=== PATIENT | male | born 1980 | race American Indian/Alaskan Native ===

== ENCOUNTER 2016-09-18 19:54 | Emergency (ER) | payer SELFPAY ==
[2016-09-18 20:41] LABS: Basophils % (Auto) 0.9 % (0.0-1.8); Eosinophils % (Auto) 4.2 % (0.0-4.3); Hematocrit 50.7 % (35.5-45.6); Hemoglobin 16.4 gm/dl (11.8-15.2); Mean Corpuscular HGB Conc 32 % (32-34); Mean Corpuscular Hemoglobin 28 pg (28-32); Mean Corpuscular Volume 86 fl (84-94); Platelet Count 291 K/mm3 (140-440); Red Blood Count 5.91 M/mm3 (3.65-5.03); Red Cell Distribution Width 15.9 % (13.2-15.2); White Blood Count 7.7 K/mm3 (4.5-11.0)
[2016-09-18 20:46] LABS: INR 0.93 (0.87-1.13)
[2016-09-18 20:47] LABS: Partial Thromboplastin Time 26.6 Sec. (24.2-36.6)
[2016-09-18 20:52] LABS: BUN/Creatinine Ratio 8.88; Blood Urea Nitrogen 8 mg/dL (9-20); Calcium 9.5 mg/dL (8.4-10.2); Carbon Dioxide 21 mmol/L (22-30); Glucose 89 mg/dL (75-100)
[2016-09-18 20:53] LABS: Anion Gap 19 mmol/L; Chloride 105.4 mmol/L (98-107); Potassium 4.3 mmol/L (3.6-5.0); Sodium 141 mmol/L (137-145)
[2016-09-19] MEDS ORDERED: DUONEB 0.5 MG-3 MG/3 ML SOLN IH ONE (01:51)
[2016-09-19] MEDS ORDERED: DELTASONE PO ONE (01:51)
--- NOTE | 2016-09-19 02:11 | Emergency Department Report ---
HPI - General Chief Complaint: Chest Pain Time Seen by Provider: 09/19/16 01:11 - HPI HPI: This is a 35-year-old Afro-[place] male presents the emergency department from home with complaint of some midsternal tightness, shortness of breath and cough but has been going on intermittently over the past 3 weeks and often occurs at night, waking him from sleep. At that point the patient will take some aspirin and use his albuterol inhaler and he will get enough relief or taken go to sleep. He denies any fever, nausea, vomiting, back pain, diaphoresis. The cough sounds productive to him and he is unable to bring anything up. He has a past nuchal history of some type of aortic tear in the past that caused him to have some surgical intervention. The patient is a tobacco smoker and says he uses about 3-4 cigarettes per day. No recent travel or sick contacts at home. He does not have a primary care doctor. ED Past Medical Hx - Past Medical History Previous Medical History?: No - Surgical History Past Surgical History?: Yes Additional Surgical History: AORTIC REPAIR - Social History Smoking Status: Current Every Day Smoker Substance Use Type: Alcohol, Cocaine - Medications Home Medications: Home Medications Medication Instructions Recorded Confirmed Last Taken Type ALBUTEROL Inhaler [ProAir HFA 2 puff IH QID PRN #1 inhalation 09/19/16 Unknown Rx Inhaler] Sulfamethoxazole/Trimethoprim 1 each PO BID #10 tablet 09/19/16 Unknown Rx [Bactrim DS TAB] predniSONE [Deltasone] 20 mg PO QDAY #4 tab 09/19/16 Unknown Rx ED Review of Systems ROS: Stated complaint: CHEST PAIN Other details as noted in HPI Comment: All other systems reviewed and negative Constitutional: denies: chills, fever Eyes: denies: eye pain, eye discharge, vision change ENT: denies: ear pain, throat pain Respiratory: cough, shortness of breath, wheezing Cardiovascular: chest pain. denies: palpitations Gastrointestinal: denies: abdominal pain, nausea, diarrhea Genitourinary: denies: urgency, dysuria Musculoskeletal: denies: back pain, joint swelling, arthralgia Skin: denies: rash, lesions Neurological: denies: headache, weakness, paresthesias Physical Exam - Physical Exam Vital Signs: Vital Signs 09/18/16 09/19/16 20:14 01:07 Temperature 98.2 F Pulse Rate 88 68 Respiratory 18 16 Rate Blood Pressure 142/100 Blood Pressure 126/77 [Left] O2 Sat by Pulse 100 98 Oximetry Physical Exam: GENERAL: The patient is well-developed well-nourished. HEENT: Normocephalic. Atraumatic. Extraocular motions are intact. Patient has moist mucous membranes. Pupils equal reactive to light bilaterally. NECK: Supple. Trachea is midline. CHEST/LUNGS: Mild expiratory wheezing heard throughout the chest. No cough heard during examination. No tachypnea or accessory muscle use. There is no respiratory distress noted. HEART/CARDIOVASCULAR: Regular. There is no tachycardia. There is no gallop rub or murmur. ABDOMEN: Abdomen is soft, nontender. Patient has normal bowel sounds. There is no abdominal distention. SKIN: Skin is warm and dry. There is a circular area to the right medial ankle that is about 4 cm in diameter that appears mostly consistent with a small ulcer or macerated skin. NEURO: The patient is awake, alert, and oriented. The patient is cooperative. The patient has no focal neurologic deficits. The patient has normal speech. MUSCULOSKELETAL: There is no tenderness or deformity. There is no limitation range of motion. There is no evidence of acute injury. ED Course Vital Signs 09/18/16 09/19/16 20:14 01:07 Temperature 98.2 F Pulse Rate 88 68 Respiratory 18 16 Rate Blood Pressure 142/100 Blood Pressure 126/77 [Left] O2 Sat by Pulse 100 98 Oximetry ED Medical Decision Making - Lab Data Result diagrams: 09/18/16 20:20 09/18/16 20:20 - EKG Data -: EKG Interpreted by Me EKG shows normal: sinus rhythm, axis (right axis deviation), intervals, QRS complexes, ST-T waves (T-wave inversions to the inferior leads) Rate: normal - EKG Data When compared to previous EKG there are: previous EKG unavailable Interpretation: other (sinus rhythm, right axis deviation, T-wave inversions to the inferior leads) - Radiology Data Radiology results: image reviewed interpreted by me: Chest x-ray did not show any acute process. Heart is normal shape and size. No effusions. No pneumothorax. No signs of pneumonia seen. - Medical Decision Making 35-year-old male presents with a complaint of a one month history of some chest tightness, wheezing and shortness of breath and cough that wakes him up from sleep and mostly occurs at night. On physical exam he does have a mild expiratory wheeze but no respiratory distress. He was given a dose of steroids and a DuoNeb and upon reevaluation he is feeling much better. Patient's labs are mostly unremarkable. He had negative troponins 3 and a negative d-dimer. No signs of infection. Chest x-ray does not show any pneumonia, pleural effusions or any acute process. Vital signs stable throughout his ED course including being afebrile. Patient appears safe for discharge home at this time. He was given an albuterol inhaler, steroids. Patient showed me a small wound to the medial right ankle that appears more like some macerated skin from using so much Neosporin. He will be placed on a small dose of Bactrim and we discussed wound care. He was given referrals for primary care and cardiology. He will return to the ER with any worsening of symptoms or any acute distress. - Differential Diagnosis Asthma, bronchitis, PE, [place], Pneumonia Critical Care Time: No Critical care attestation.: If time is entered above; I have spent that time in minutes in the direct care of this critically ill patient, excluding procedure time. ED Disposition Clinical Impression: Intermittent chest pain, Bronchospasm, Tobacco use, Bronchitis Ankle wound Qualifiers: Encounter type: initial encounter Laterality: right Qualified Code(s): S91.001A - Unspecified open wound, right ankle, initial encounter Disposition: DISCHARGED TO HOME OR SELFCARE Is pt being admited?: No Condition: Stable Instructions: Chest Pain (ED), Acute Bronchitis (ED), Bronchospasm (ED) Additional Instructions: Please follow-up with a primary care doctor in the next few days if possible. I will also give you a referral for a local office specialist, Dr. Lazaro, to follow up regarding her chest discomfort. Please try and quit smoking. Return to the emergency department with any worsening of your symptoms or any acute distress. Prescriptions: ALBUTEROL Inhaler [ProAir HFA Inhaler] 2 puff IH QID PRN #1 inhalation PRN Reason: Shortness Of Breath predniSONE [Deltasone] 20 mg PO QDAY #4 tab Sulfamethoxazole/Trimethoprim [Bactrim DS TAB] 1 each PO BID #10 tablet Referrals: PRIMARY CARE, [Primary Care Provider] - 3-5 Days LESLEY LAZARO MD [Staff Physician] - 3-5 Days AUSTYN STEWART MD [Staff Physician] - 3-5 Days [facility] [Outside] - 3-5 Days Time of Disposition: 04:21
[2016-09-19 04:36] VITALS: BP 122/68
--- NOTE | 2016-09-19 09:34 | XRay Report ---
AP CHEST : 09/18/16 19:54:00 CLINICAL: Chest pain. COMPARISON:None FINDINGS: Normal heart and pulmonary vessels. The lungs are normally expanded and clear. The bones and soft tissues are unremarkable. IMPRESSION: Normal chest.
== END 2016-09-19 04:41 | disposition home or self-care (01) ==
LOC: ED 19:54
DX: S91.001A Unspecified open wound, right ankle, initial encounter (principal); R07.2 Precordial pain; J98.01 Acute bronchospasm; J40 Bronchitis, not specified as acute or chronic; Z72.0 Tobacco use; F17.200 Nicotine dependence, unspecified, uncomplicated; F14.10 Cocaine abuse, uncomplicated; X58.XXXA Exposure to other specified factors, initial encounter; Y93.9 Activity, unspecified; Y99.9 Unspecified external cause status; Y92.9 Unspecified place or not applicable
CPT/HCPCS: 36415; 71010; 80048; 84484; 85025; 85379; 85610; 85730; 93005; 93010; 99285; J7512